=== PATIENT | female | born 1960 | race Caucasian/White ===

== ENCOUNTER → 2017-04-28 | Outpatient (CLI) | payer BC | LOC: PLD 11:29 → LAB SHORT 11:29 | DX: D48.5 Neoplasm of uncertain behavior of skin (principal) | CPT/HCPCS: 88305 ==

== ENCOUNTER → 2017-06-24 | Outpatient (CLI) | payer BC ==
[2017-06-26 13:32] LABS: HPV Genotype 16 Not Detected (NOTDET); HPV Genotype 18 Not Detected (NOTDET)
[2017-07-06 10:31] LABS: HPV High Risk Other Not Detected (NOTDET)
== END | disposition home or self-care (01) ==
LOC: OLS 11:49
PROVIDERS: Obstetrics & Gynecology Gynecology
DX: Z12.4 Encounter for screening for malignant neoplasm of cervix (principal)
CPT/HCPCS: 87624; G0123

== ENCOUNTER → 2017-08-05 | Outpatient (CLI) | payer BC | END | disposition home or self-care (01) | LOC: LAB SHORT 10:10 → PLD 10:10 | DX: C44.619 Basal cell carcinoma of skin of left upper limb, including shoulder (principal) | CPT/HCPCS: 88305 ==

== ENCOUNTER → 2017-12-15 | Outpatient (CLI) | payer BC | END | disposition home or self-care (01) | LOC: PLD 09:54 → LAB SHORT 09:54 | DX: L57.0 Actinic keratosis (principal) | CPT/HCPCS: 88305 ==

== ENCOUNTER → 2018-04-22 | Outpatient (CLI) | payer BC | END | disposition home or self-care (01) | LOC: LAB SHORT 07:41 → PLD 07:41 | DX: R22.0 Localized swelling, mass and lump, head (principal) | CPT/HCPCS: 88305 ==

== ENCOUNTER → 2018-08-04 | Outpatient (CLI) | payer BC ==
[2018-08-06 15:06] LABS: HPV 16 Negative (Negative); HPV 18 Negative (Negative); HPV OTHER HR TYPES Negative (Negative)
== END | disposition home or self-care (01) ==
LOC: LAB SHORT 17:44 → LAB 17:44
PROVIDERS: Obstetrics & Gynecology Gynecology
DX: Z12.4 Encounter for screening for malignant neoplasm of cervix (principal)
CPT/HCPCS: 87624; G0123

== ENCOUNTER → 2018-09-29 | Outpatient (CLI) | payer BC | END | disposition home or self-care (01) | LOC: PLD 10:08 → LAB SHORT 10:08 | DX: L57.0 Actinic keratosis (principal) | CPT/HCPCS: 88305 ==

== ENCOUNTER → 2018-10-15 | Outpatient (CLI) | payer BC | END | disposition home or self-care (01) | LOC: LAB SHORT 14:23 → PLD 14:23 | DX: N95.0 Postmenopausal bleeding (principal) | CPT/HCPCS: 88305 ==

== ENCOUNTER → 2020-07-24 | Outpatient (CLI) | payer BC | END | disposition home or self-care (01) | LOC: PLD 11:08 → LAB SHORT 11:08 | DX: L57.0 Actinic keratosis (principal) | CPT/HCPCS: 88305 ==

== ENCOUNTER → 2021-03-06 | Outpatient (CLI) | payer BC | LOC: LAB SHORT 11:29 | DX: D48.5 Neoplasm of uncertain behavior of skin (principal); D23.61 Other benign neoplasm of skin of right upper limb, including shoulder; C44.529 Squamous cell carcinoma of skin of other part of trunk; Z88.8 Allergy status to other drugs, medicaments and biological substances; Z91.048 Other nonmedicinal substance allergy status; Z91.040 Latex allergy status | CPT/HCPCS: 88305 ==

== ENCOUNTER → 2023-02-09 | Outpatient (CLI) | payer BC | END | disposition home or self-care (01) | LOC: PLD 09:52 → LAB SHORT 09:52 | DX: L57.0 Actinic keratosis (principal) | CPT/HCPCS: 88305 ==

== ENCOUNTER → 2024-01-28 | Outpatient (CLI) | payer MEDICARE, BC | LOC: LAB SHORT 13:11 → LAB 13:11 | DX: E55.9 Vitamin D deficiency, unspecified (principal) | CPT/HCPCS: 82306 ==

== ENCOUNTER → 2024-04-11 | Outpatient (CLI) | payer MEDICARE, BC | END | disposition home or self-care (01) | LOC: LAB SHORT 13:58 → LAB 13:58 | DX: G62.89 Other specified polyneuropathies (principal) | CPT/HCPCS: 82607 ==

== ENCOUNTER → 2024-06-01 | Outpatient (CLI) | payer MEDICARE, BC | END | disposition home or self-care (01) | LOC: LAB 17:33 → LAB SHORT 17:33 | DX: E55.9 Vitamin D deficiency, unspecified (principal) | CPT/HCPCS: 82306 ==

== ENCOUNTER → 2024-11-10 | Outpatient (CLI) | payer MEDICARE, BC ==
[2024-11-10 20:25] LABS: Alanine Aminotransfer (ALT/SGP 30.0 U/L (12-78); Albumin, Blood 4.2 g/dL (3.4-5.0); Albumin/Globulin Ratio 1.4 (0.8-1.8); Anion Gap 10.0 mmol/L (3-11); Aspartate Aminotrans (AST/SGOT 24.0 U/L (12-37); Bilirubin, Total 0.5 mg/dL (0.1-1.0); Blood Urea Nitrogen 14.0 mg/dL (8-24); CO2, Blood 28.0 mmol/L (21-32); Calcium, Blood 9.5 mg/dL (8.5-10.1); Chloride, Blood 105.0 mmol/L (98-108); Creatinine, Blood 0.57 mg/dL (0.40-1.00); Globulin, Blood 3.0 g/dL (2.2-4.0); Glucose, Blood 80.0 mg/dL (70-99); Potassium, Blood 3.7 mmol/L (3.5-5.5); Sodium, Blood 139.0 mmol/L (136-145); Total Protein, Blood 7.2 g/dL (6.4-8.2)
== END ==
LOC: LAB 13:32 → LAB SHORT 13:32
PROVIDERS: Hospitalist
DX: I10 Essential (primary) hypertension (principal)
CPT/HCPCS: 80053

== ENCOUNTER → 2025-02-14 | Outpatient (CLI) | payer MEDICARE, BC ==
[2025-02-14 15:52] LABS: CHOL/HDL RATIO 1.9; Cholesterol 196 mg/dL (50-200); HDL Cholesterol 105 mg/dL (>39); LDL/HDL RATIO 0.8; Low Density Lipoprotein Chol 84 mg/dL (0-110); Triglycerides 36 mg/dL (30-160); Very Low Density Lipoprot Chol 7 mg/dL (6-32)
[2025-02-16 16:31] LABS: C-Reactive Protein, High Sens. 0.436 mg/L (0.000-3.000); Thyroid Stimulating Hormone 2.16 uIU/mL (0.360-4.800)
== END | disposition home or self-care (01) ==
LOC: LAB SHORT 13:38 → LAB 13:38
PROVIDERS: Hospitalist
DX: Z00.00 Encounter for general adult medical examination without abnormal findings (principal); Z13.6 Encounter for screening for cardiovascular disorders; E78.89 Other lipoprotein metabolism disorders; I10 Essential (primary) hypertension
CPT/HCPCS: 80061; 84443; 86141

== ENCOUNTER → 2025-02-17 | Outpatient (CLI) | payer MEDICARE, BC ==
[2025-02-20 01:30] LABS: APOLIPOPROTEIN B 68 mg/dL (60-117)
[2025-02-21 05:52] LABS: LIPOPROTEIN (A) <6 mg/dL (<=29)
== END ==
LOC: LAB 07:45 → LAB SHORT 07:45
PROVIDERS: Hospitalist
DX: E78.89 Other lipoprotein metabolism disorders (principal)
CPT/HCPCS: 82172; 83695

== ENCOUNTER 2025-02-26 12:39 | Emergency (ER) | payer MEDICARE, BC ==
[~2025-02-26] VITALS: Ht 162.6 cm; Wt 54.4 kg
[2025-02-26 13:01] VITALS: BP 159/90
[2025-02-26] MEDS ORDERED: HYDROcodone 5-APAP 325 TAB PO ONE (13:10)
[2025-02-26] MEDS ORDERED: Ondansetron 4 MG SoluTab SL ONE (13:20)
[2025-02-26] MEDS ORDERED: Voltaren100 GM TOP (15:07)
[2025-02-26] MEDS ORDERED: Robaxin750 MG PO (15:07)
== END 2025-02-26 15:20 | disposition home or self-care (01) ==
LOC: ER 12:39
DX: S39.012A Strain of muscle, fascia and tendon of lower back, initial encounter (principal); M54.2 Cervicalgia; R51.9 Headache, unspecified; Z91.048 Other nonmedicinal substance allergy status; Z88.4 Allergy status to anesthetic agent; Z88.8 Allergy status to other drugs, medicaments and biological substances; Z91.040 Latex allergy status; W20.8XXA Other cause of strike by thrown, projected or falling object, initial encounter
CPT/HCPCS: 70450; 72125; 72131; 99283-25; A9270